=== PATIENT | female | born 1945 | race Caucasian/White ===

== ENCOUNTER 2020-08-20 12:06 | Outpatient (REF) | payer MEDICARE, SELFPAY ==
[2020-08-20 14:29] LABS: Anion Gap 14 (12-20); Blood Urea Nitrogen 15 mg/dL (9-16); Carbon Dioxide 26 mmol/L (22-29); Chloride 104 mmol/L (96-108); Estimated Glomerular Filt Rate 47; Glucose Fasting 121 mg/dL (60-99); Potassium 4.5 mmol/l (3.3-5.1); Sodium 139 mmol/L (135-145)
[2020-08-20 14:37] LABS: Estimated Average Glucose 157 mg/dL; Hemoglobin A1c % 7.1 %
== END 2020-08-20 12:07 | disposition home or self-care (01) ==
LOC: HO.10HDL 12:06
PROVIDERS: Visit Provider Family Medicine
DX: E11.9 Type 2 diabetes mellitus without complications (principal); I10 Essential (primary) hypertension
CPT/HCPCS: 80051; 82565; 82947; 83036; 84520

== ENCOUNTER 2020-09-07 15:48 | Outpatient (REF) | payer MEDICARE, SELFPAY ==
--- NOTE | 2020-09-07 15:53 | MM_ITS ---
EXAMINATION: MM SCREENING DIGITAL BREAST TOMOSYNTHESIS, BILATERAL CLINICAL INFORMATION: Screening. Asymptomatic. The lifetime risk of breast cancer based on the Tyrer-Cuzick Model is 3%. COMPARISON: Mammography: 03/14/2019, 02/28/2018 TECHNIQUE: Digital breast tomosynthesis is performed in both the craniocaudal and mediolateral oblique views along with computer-aided detection (CAD). Synthesized 2D images are generated from the tomosynthesis. Additional views are provided: Right CC x2, left CC, left MLO. FINDINGS: The breasts are almost entirely fatty (ACR BI-RADS breast composition Category a). There are no significant masses, abnormal calcifications, or other abnormalities. Background stromal densities are stable. The axilla are unremarkable. No significant changes. MM/MM tomosynthesis screening BI IMPRESSION: No mammographic evidence of malignancy. ASSESSMENT: BI-RADS 1: Negative RECOMMENDATION: Routine annual mammography screening. This patient's information was entered into a reminder system with a target due date for their next mammogram.
== END 2020-09-07 15:49 | disposition home or self-care (01) ==
LOC: HO.MAMMO 15:48
PROVIDERS: PCP Family Medicine; Visit Provider Family Medicine
DX: Z12.31 Encounter for screening mammogram for malignant neoplasm of breast (principal)
CPT/HCPCS: 77063; 77067

== ENCOUNTER → 2020-12-25 14:56 | Outpatient (REF) | payer MEDICARE, SELFPAY ==
--- NOTE | 2020-12-25 15:11 | ECG_ITS ---
Test Reason : IRREG HR Blood Pressure : / mmHG Vent. Rate : 087 BPM Atrial Rate : 087 BPM P-R Int : 160 ms QRS Dur : 118 ms QT Int : 392 ms P-R-T Axes : 067 -46 028 degrees QTc Int : 471 ms Sinus rhythm with occasional Premature atrial complexes Possible Left atrial enlargement Left anterior fascicular block Left ventricular hypertrophy with QRS widening Nonspecific ST abnormality Abnormal ECG When compared with ECG of 11-JUN-2017 20:44, Premature atrial complexes are now Present Referred By: Jacob Mendenhall Electronically Signed By:EBONI CHATMAN MD
== END ==
LOC: HO.CARD 14:56
PROVIDERS: PCP Family Medicine; Visit Provider Family Medicine
DX: I49.9 Cardiac arrhythmia, unspecified (principal); I49.3 Ventricular premature depolarization
CPT/HCPCS: 93005

== ENCOUNTER 2021-03-11 11:43 | Outpatient (REF) | payer MEDICARE, SELFPAY ==
[2021-03-11 13:46] LABS: Anion Gap 12 (12-20); Blood Urea Nitrogen 14 mg/dL (9-16); Carbon Dioxide 28 mmol/L (22-29); Chloride 104 mmol/L (96-108); Estimated Glomerular Filt Rate 50; Sodium 139 mmol/L (135-145)
== END 2021-03-11 11:44 | disposition home or self-care (01) ==
LOC: HO.10HDL 11:43
PROVIDERS: PCP Family Medicine; Visit Provider Family Medicine
DX: I10 Essential (primary) hypertension (principal)
CPT/HCPCS: 36415; 80051; 82565; 84520

== ENCOUNTER → 2021-04-28 13:09 | Outpatient (BNVA) | payer MEDICARE, SELFPAY | PROVIDERS: PCP Family Medicine; Visit Provider Internal Medicine | DX: E66.01 Morbid (severe) obesity due to excess calories (principal); J98.4 Other disorders of lung; R06.00 Dyspnea, unspecified; G47.33 Obstructive sleep apnea (adult) (pediatric); Z99.89 Dependence on other enabling machines and devices | CPT/HCPCS: 99202 ==

== ENCOUNTER 2021-05-18 13:57 | Outpatient (REF) | payer MEDICARE, SELFPAY ==
--- NOTE | 2021-05-18 15:12 | PFT_ITS ---
Forced vital capacity slightly decreased. FEV1, [id number], and MVV are normal. Post bronchodilator therapy, there is no significant change. Total lung capacity and residual volume are moderately decreased. Diffusion capacity normal. CONCLUSION: [id number] degree of restrictive pulmonary disorder. No obstructive airway disorder. MD LILIA Blanca/MODL / [id number]
== END 2021-05-18 13:58 | disposition home or self-care (01) ==
LOC: HO.RESP 13:57
PROVIDERS: PCP Family Medicine; Visit Provider Internal Medicine
DX: R06.00 Dyspnea, unspecified (principal); J98.4 Other disorders of lung; E66.01 Morbid (severe) obesity due to excess calories
CPT/HCPCS: 94060; 94727; 94729

== ENCOUNTER → 2021-06-10 14:03 | Outpatient (BNVA) | payer MEDICARE, SELFPAY | PROVIDERS: PCP Family Medicine; Visit Provider Internal Medicine | DX: G47.33 Obstructive sleep apnea (adult) (pediatric) (principal); J98.4 Other disorders of lung; R06.00 Dyspnea, unspecified; E66.01 Morbid (severe) obesity due to excess calories; Z99.89 Dependence on other enabling machines and devices | CPT/HCPCS: 99212 ==

== ENCOUNTER 2021-09-16 15:16 | Outpatient (REF) | payer MEDICARE, SELFPAY ==
--- NOTE | ~2021-09-16 | MM_ITS ---
EXAMINATION: MM SCREENING DIGITAL BREAST TOMOSYNTHESIS, BILATERAL CLINICAL INFORMATION: Screening. Asymptomatic. The lifetime risk of breast cancer based on the Tyrer-Cuzick Model is 3.7%. COMPARISON: Mammography: 09/07/2020 and studies dating back to 12/12/2013. TECHNIQUE: Digital breast tomosynthesis is performed in both the craniocaudal and mediolateral oblique views along with computer-aided detection (CAD). Synthesized 2D images are generated from the tomosynthesis. A right cleavage view was performed. FINDINGS: The breasts are almost entirely fatty (ACR BI-RADS breast composition category A). There is a stable parenchymal pattern of the left breast with no new abnormal dominant mass or suspicious grouping of microcalcifications. About the inferior inner aspect of the right breast, approximately 5 cm from the nipple, there is a grouping of calcifications which may be vascular. Recommend magnification views in craniocaudal and 90-degree mediolateral views. MM/MM tomosynthesis screening BI IMPRESSION: Right breast calcifications for further evaluation with magnification views. ASSESSMENT: BI-RADS 0: Incomplete - need additional imaging evaluation RECOMMENDATION: 1. Additional views of the right breast. 2. Targeted ultrasound if warranted after review of the additional views. 3. Radiology department staff will contact the patient for additional imaging. This patient's information was entered into a reminder system with a target due date for their next mammogram.
== END 2021-09-16 15:17 | disposition home or self-care (01) ==
LOC: HO.MAMMO 15:16
PROVIDERS: Visit Provider Family Medicine
DX: Z12.31 Encounter for screening mammogram for malignant neoplasm of breast (principal)
CPT/HCPCS: 77063; 77067

== ENCOUNTER 2021-09-21 11:39 | Outpatient (REF) | payer MEDICARE, SELFPAY ==
[2021-09-21 14:04] LABS: Estimated Average Glucose 143 mg/dL; Hemoglobin A1c % 6.6 %
[2021-09-21 14:17] LABS: Anion Gap 13 (12-20); Blood Urea Nitrogen 15 mg/dL (9-16); Carbon Dioxide 27 mmol/L (22-29); Chloride 104 mmol/L (96-108); Estimated Glomerular Filt Rate 50; Glucose Fasting 123 mg/dL (60-99); Potassium 4.7 mmol/L (3.3-5.1); Sodium 139 mmol/L (135-145)
== END 2021-09-21 11:40 | disposition home or self-care (01) ==
LOC: HO.10HDL 11:39
PROVIDERS: Internal Medicine; Visit Provider Family Medicine
DX: I10 Essential (primary) hypertension (principal); E11.9 Type 2 diabetes mellitus without complications
CPT/HCPCS: 36415; 80051; 82565; 82947; 83036; 84520

== ENCOUNTER 2021-10-07 13:49 | Outpatient (REF) | payer MEDICARE, SELFPAY ==
--- NOTE | ~2021-10-07 | MM_ITS ---
EXAMINATION: MM DIAGNOSTIC DIGITAL MAMMOGRAPHY, RIGHT CLINICAL INFORMATION: Recall from screening for increased calcifications anterior medial right breast, possibly vascular. TC score 4%. COMPARISON: Mammography: 09/16/2021, 09/07/2020, 03/14/2019, 02/28/2018 TECHNIQUE: Digital mammography is performed in the following views: Magnification CC x2, magnification ML, magnification LM x2. FINDINGS: The breasts are almost entirely fatty (ACR BI-RADS breast composition Category a). The calcifications anterior medial right breast are increased in number since 2018. On recent tomography, they appear to overlie vascular markings. Vascular etiology is also suggested on today's magnification LM #2 and magnification CC #2 views. Results are discussed with the patient at time of visit. MM/MM added views RT IMPRESSION: Increased calcifications anterior medial right breast likely vascular. ASSESSMENT: BI-RADS 3: Probably Benign RECOMMENDATION: Diagnostic right mammography in 6 months. This patient's information was entered into a reminder system with a target due date for their next mammogram.
== END 2021-10-07 13:50 | disposition home or self-care (01) ==
LOC: HO.MAMMO 13:49
PROVIDERS: Visit Provider Family Medicine
DX: R92.1 Mammographic calcification found on diagnostic imaging of breast (principal)
CPT/HCPCS: 77065

== ENCOUNTER → 2021-11-02 13:54 | Outpatient (REF) | payer MEDICARE, SELFPAY ==
--- NOTE | 2021-11-02 13:59 | CA_ITS ---
Transthoracic Echocardiogram Patient (Last, First, Middle): Stephanie Magaña, Gender: Female Date of : 1945 Age: 76 Procedure Date: 11/02/2021 Procedure Type: Transthoracic Echocardiogram Location: OP Height: 152.4 cm Weight: 117.94 kg BSA: 2.09 m2 Heart Rate: bpm BP: 103 / 82 mmHg Manager Winter: MARGO Referring MD: Jacob Mendenhall MD Symptoms: R01.1 MURMUR, J44.9 COPD Study Quality: Technically Difficult/contrast Conclusions: - 1. Technically very limited study despite use of definity contrast 2. LV systolic function is normal with LVEF of 65-70% with impaired relaxation filling pattern 3. Olps-zy-itktwqus aortic stenosis is noted Findings Procedure Information Contrast agent, definity, is being given per protocol without apparent complications. Left Ventricle The left ventricular systolic function is normal. The visually estimated ejection fraction is between 65-70%. Spectral Doppler is indicative of an impaired relaxation filling pattern. E/E prime ratio is between 8 and 15 consistent with indeterminate filling pressures. Right Ventricle The right ventricle was not well visualized. Atria The left atrium was not well visualized. Interatrial shunt cannot be excluded. The right atrium was not well visualized. Aortic Valve The aortic valve was not well visualized. There is mild to moderate aortic valve stenosis. The mean gradient is 18 mmHg. The aortic valve area is 1.71 cm2. There is mild aortic valve regurgitation. Mitral Valve The mitral valve was not well visualized. Pulmonic Valve The pulmonic valve was not well visualized. Tricuspid Valve The tricuspid valve was not well visualized. Tricuspid regurgitation envelope is inadequate for calculation of right ventricular systolic pressure. Great Vessels The aorta was not well visualized. The pulmonary artery was not well visualized. Venous The inferior vena cava was not well visualized. Pericardium/Pleural The pericardium was not well visualized. Prior Study Comparison no previous study in the last 5 years for comparison Measurements 2D Linear Measurements Ao Root: 3.30 2.1-3.5 cm LVOT Diam: 2.00 3.0+(-)1.3 cm 2D Systolic Function EF 4C: 73.30 >55% EF 2C: 64.60 >55% EF BiP: 68.20 >55% Mitral Valve MV Pk E: 0.91 MV PK A: 1.24 MV Decel Time: 232.00 E/A: 0.70 E'Lateral: 5.98 E'Medial: 6.64 E/E' Med: 13.80 E/E' Lat: 15.30 PHT: 68.00 MVA PHT: 3.24 Decel [place]: 3.93 Aortic Valve AoV Pk Jorge: 2.93 AoV Mn Jorge: 1.98 AoV VTI: 0.59 AoV Pk Grad: 34.00 Aov Mn Grad: 18.00 DARRELL Cont.VTI: 1.71 LVOT LVOT Pk Jorge: 1.53 LVOT Mn Jorge: 1.18 LVOT VTI: 0.32 LVOT Pk Grad: 9.00 LVOT Mn Grad: 6.00 LVOT Diam: 2.00 LVOT Area: 3.14 Diastolic Function MV Pk E: 0.91 MV Pk A: 1.24 E/A: 0.70 E'Medial: 6.64 E/E' Med: 13.80 E' Laterial: 5.98 E/E' Lat: 15.30 Right Ventricle TAPSE (mm): 26.40 TVS' Jorge: 9.90 Tricuspid Valve TR Pk Jorge: 2.10 TR Pk Grad: 18.00 Great Vessels Aorta Ao Root-2D: 3.30 2.0-3.7 cm Ao Asc: 3.10 2.1-3.4 cm Updated in Other Vendor System with Status of Final Sourav Nguyen MD electronically signed on 11/03/2021 7:11:14 PM with status of Final
== END ==
LOC: HO.CARD 13:54
PROVIDERS: Visit Provider Family Medicine
DX: R01.1 Cardiac murmur, unspecified (principal)
CPT/HCPCS: 93306; Q9957

== ENCOUNTER 2022-02-21 12:11 | Outpatient (REF) | payer MEDICARE, SELFPAY ==
[2022-02-21 13:50] LABS: Glucose Fasting 134 mg/dL (60-99)
[2022-02-21 13:54] LABS: Estimated Average Glucose 146 mg/dL; Hemoglobin A1c % 6.7 %
[2022-02-21 13:55] LABS: Creatinine Urine 69.85 mg/dL; Microalbumin Urine < 5.0 mg/L
== END 2022-02-21 12:12 | disposition home or self-care (01) ==
LOC: HO.10HDL 12:11
PROVIDERS: Visit Provider Family Medicine
DX: E11.9 Type 2 diabetes mellitus without complications (principal)
CPT/HCPCS: 36415; 82043; 82947; 83036

== ENCOUNTER 2022-04-08 14:46 | Outpatient (REF) | payer MEDICARE, SELFPAY ==
--- NOTE | ~2022-04-08 | MM_ITS ---
EXAMINATION: MM DIAGNOSTIC DIGITAL BREAST TOMOSYNTHESIS, RIGHT CLINICAL INFORMATION: Short interval six-month follow-up probable benign possibly vascular calcifications anterior lower inner right breast. The lifetime risk of breast cancer based on the Tyrer-Cuzick Model is 3%. COMPARISON: Mammography: 10/07/2021, 09/16/2021 (BI-RADS 0), 09/07/2020, 03/14/2019 TECHNIQUE: Digital breast tomosynthesis is performed in both the craniocaudal and mediolateral oblique views along with computer-aided detection (CAD). Synthesized 2D images are generated from the tomosynthesis. Additional magnification CC and magnification lateral views are obtained. FINDINGS: The breasts are almost entirely fatty (ACR BI-RADS breast composition Category a). Background stromal markings are stable. There is no interval mass or architectural abnormality. The calcifications for follow-up anterior inferior medial breast appear to overlie vascular marking on tomography. The magnification views show no increasing calcifications. They will be reassessed again at time of annual bilateral mammography, due in 6 months. Results are provided to the patient at time of visit by the technologist. MM/MM tomosynthesis diagnostic RT IMPRESSION: Calcifications are stable, possibly vascular on tomography. ASSESSMENT: BI-RADS 3: Probably Benign RECOMMENDATION: Diagnostic mammography at time of annual bilateral exam, due in 6 months. This patient's information was entered into a reminder system with a target due date for their next mammogram.
== END 2022-04-08 14:47 | disposition home or self-care (01) ==
LOC: HO.MAMMO 14:46
PROVIDERS: PCP Family Medicine; Visit Provider Family Medicine
DX: R92.1 Mammographic calcification found on diagnostic imaging of breast (principal)
CPT/HCPCS: 77061; 77065

== ENCOUNTER 2022-04-18 12:10 | Outpatient (REF) | payer MEDICARE, SELFPAY ==
[2022-04-18 14:08] LABS: Anion Gap 14 (12-20); Blood Urea Nitrogen 14 mg/dL (9-16); Carbon Dioxide 26 mmol/L (22-29); Chloride 105 mmol/L (96-108); Estimated Glomerular Filt Rate 47; Sodium 140 mmol/L (135-145)
== END 2022-04-18 12:11 | disposition home or self-care (01) ==
LOC: HO.10HDL 12:10
PROVIDERS: Visit Provider Family Medicine
DX: I10 Essential (primary) hypertension (principal)
CPT/HCPCS: 36415; 80051; 82565; 84520

== ENCOUNTER 2022-07-20 11:17 | Outpatient (REF) | payer MEDICARE, SELFPAY ==
[2022-07-20 13:51] LABS: MANUAL DIFF FLAG NO
[2022-07-20 14:22] LABS: Basophils Absolute Auto 0.1 X10*3/uL (0.0-0.2); Eosinophils Absolute Auto 0.3 X10*3/uL (0.0-0.4); Eosinophils Percent Auto 3.7 % (0-4); Hematocrit 47.9 % (37.0-47.0); Hemoglobin 15.6 g/dl (12.0-16.0); Imm Gran Abs Auto 0.01 X10*3/uL (0.00-0.03); Imm Gran Pct Auto 0.1 % (0.0-0.4); Lymphocytes Absolute Auto 2.7 X10*3/uL (1.2-4.9); Lymphocytes Percent Auto 38.2 % (20-40); Mean Corpuscular HGB Conc 32.6 g/dl (31.0-35.0); Mean Corpuscular Hemoglobin 29.1 pg (27.0-33.0); Mean Corpuscular Volume 89.4 fL (80.0-98.0); Monocytes Absolute Auto 0.6 X10*3/uL (0.1-1.2); Monocytes Percent Auto 8.5 % (2-11); Neutrophils Absolute Auto 3.5 x10*3/uL (2.0-8.3); Neutrophils Percent Auto 48.5 % (45-73); Platelet Count 242 X10*3/uL (160-400); Red Blood Count 5.36 X10*6/uL (4.20-5.50); Red Cell Distribution Width 14.2 % (11.0-16.0); White Blood Count 7.1 X10*3/uL (4.8-10.8)
[2022-07-20 14:44] LABS: Glucose Fasting 120 mg/dL (60-99)
[2022-07-20 14:45] LABS: Estimated Average Glucose 140 mg/dL; Hemoglobin A1c % 6.5 %
== END 2022-07-20 11:18 | disposition home or self-care (01) ==
LOC: HO.10HDL 11:17
PROVIDERS: Visit Provider Family Medicine
DX: E11.9 Type 2 diabetes mellitus without complications (principal); D45 Polycythemia vera
CPT/HCPCS: 36415; 82947; 83036; 85025

== ENCOUNTER 2022-10-07 13:13 | Outpatient (REF) | payer MEDICARE, SELFPAY ==
--- NOTE | ~2022-10-07 | MM_ITS ---
EXAMINATION: MM DIAGNOSTIC DIGITAL BREAST TOMOSYNTHESIS, BILATERAL CLINICAL INFORMATION: Yearly screening as well as diagnostic right breast study for microcalcifications. The lifetime risk of breast cancer based on the Tyrer-Cuzick Model is 2.5%. COMPARISON: Mammography: 04/08/2022 and studies dating back to 02/02/2016. TECHNIQUE: Digital breast tomosynthesis was performed in both the craniocaudal and mediolateral oblique views along with computer-aided detection (CAD). Synthesized 2D images were generated from the tomosynthesis. Additional right breast magnification views in craniocaudal and 90 degree mediolateral views were performed. FINDINGS: The breasts are almost entirely fatty (ACR BI-RADS breast composition Category a). No new abnormal dominant mass is appreciated. There is stability of calcifications about the superior medial aspect of the right breast. Recommend right breast magnification views in 1 year with bilateral mammography. Results are provided to the patient at time of visit by the technologist. MM/MM tomosynthesis diagnostic BI IMPRESSION: There are no significant changes from prior study. ASSESSMENT: BI-RADS 3: Probably Benign RECOMMENDATION: Diagnostic mammography at time of next annual exam, due in 12 months. This patient's information was entered into a reminder system with a target due date for their next mammogram.
== END 2022-10-07 13:14 | disposition home or self-care (01) ==
LOC: HO.MAMMO 13:13
PROVIDERS: PCP Family Medicine; Visit Provider Family Medicine
DX: R92.1 Mammographic calcification found on diagnostic imaging of breast (principal)
CPT/HCPCS: 77062; 77066

== ENCOUNTER 2022-11-04 11:28 | Outpatient (REF) | payer MEDICARE, SELFPAY ==
[2022-11-04 14:27] LABS: Anion Gap 14 (12-20); Blood Urea Nitrogen 15 mg/dL (9-16); Carbon Dioxide 27 mmol/L (22-29); Chloride 105 mmol/L (96-108); Estimated Glomerular Filt Rate 49; Potassium 4.6 mmol/L (3.3-5.1); Sodium 141 mmol/L (135-145)
== END 2022-11-04 11:29 | disposition home or self-care (01) ==
LOC: HO.10HDL 11:28
PROVIDERS: Visit Provider Family Medicine
DX: I10 Essential (primary) hypertension (principal)
CPT/HCPCS: 36415; 80051; 82565; 84520

== ENCOUNTER 2023-01-25 11:44 | Outpatient (REF) | payer MEDICARE, SELFPAY ==
[2023-01-25 14:18] LABS: Estimated Average Glucose 140 mg/dL; Hemoglobin A1c % 6.5 %
[2023-01-25 14:56] LABS: Glucose Fasting 126 mg/dL (60-99)
[2023-01-25 15:03] LABS: Creatinine Urine 192.71 mg/dL; Microalbum/Creatinine Ratio Ur 4.1 ug/mg cr
== END 2023-01-25 11:45 | disposition home or self-care (01) ==
LOC: HO.10HDL 11:44
PROVIDERS: Visit Provider Family Medicine
DX: E11.9 Type 2 diabetes mellitus without complications (principal)
CPT/HCPCS: 36415; 82043; 82947; 83036

== ENCOUNTER 2023-05-08 11:29 | Outpatient (REF) | payer MEDICARE, SELFPAY ==
[2023-05-08 14:27] LABS: Anion Gap 15 (12-20); Blood Urea Nitrogen 15 mg/dL (9-16); Carbon Dioxide 23 mmol/L (22-29); Chloride 109 mmol/L (96-108); Estimated Glomerular Filt Rate 55; Potassium 4.6 mmol/L (3.3-5.1); Sodium 142 mmol/L (135-145)
== END 2023-05-08 11:30 | disposition home or self-care (01) ==
LOC: HO.10HDL 11:29
PROVIDERS: Visit Provider Family Medicine
DX: I10 Essential (primary) hypertension (principal)
CPT/HCPCS: 36415; 80051; 82565; 84520

== ENCOUNTER 2023-10-12 13:07 | Outpatient (REF) | payer MEDICARE, SELFPAY | END 2023-10-12 13:08 | disposition home or self-care (01) | LOC: HO.MAMMO 13:07 | PROVIDERS: PCP Family Medicine; Visit Provider Family Medicine | DX: R92.1 Mammographic calcification found on diagnostic imaging of breast (principal) | CPT/HCPCS: 77062; 77066 ==

== ENCOUNTER → 2023-10-12 13:30 | Outpatient (BNV) | payer MEDICARE, SELFPAY | PROVIDERS: PCP Family Medicine; Visit Provider Radiology Diagnostic Radiology | DX: R92.1 Mammographic calcification found on diagnostic imaging of breast (principal) | CPT/HCPCS: 77066; G0279 ==

== ENCOUNTER 2023-12-13 11:03 | Outpatient (REF) | payer MEDICARE, SELFPAY ==
[2023-12-13 13:16] LABS: MANUAL DIFF FLAG NO
[2023-12-13 13:30] LABS: Basophils Absolute Auto 0.1 X10*3/uL (0.0-0.2); Eosinophils Absolute Auto 0.3 X10*3/uL (0.0-0.4); Eosinophils Percent Auto 3.7 % (0-4); Hematocrit 46.3 % (37.0-47.0); Hemoglobin 14.7 g/dl (12.0-16.0); Imm Gran Abs Auto 0.02 X10*3/uL (0.00-0.03); Imm Gran Pct Auto 0.3 % (0.0-0.4); Lymphocytes Absolute Auto 2.8 X10*3/uL (1.2-4.9); Lymphocytes Percent Auto 37.9 % (20-40); Mean Corpuscular HGB Conc 31.7 g/dl (31.0-35.0); Mean Corpuscular Hemoglobin 27.9 pg (27.0-33.0); Mean Corpuscular Volume 87.9 fL (80.0-98.0); Mean Platelet Volume 11.9 fL (9.4-12.3); Monocytes Absolute Auto 0.6 X10*3/uL (0.1-1.2); Monocytes Percent Auto 8.2 % (2-11); Neutrophils Absolute Auto 3.6 x10*3/uL (2.0-8.3); Neutrophils Percent Auto 48.9 % (45-73); Platelet Count 245 X10*3/uL (160-400); Red Blood Count 5.27 X10*6/uL (4.20-5.50); Red Cell Distribution Width 14.6 % (11.0-16.0); White Blood Count 7.3 X10*3/uL (4.8-10.8)
[2023-12-13 14:11] LABS: Anion Gap 9 (12-20); Blood Urea Nitrogen 10 mg/dL (9-16); Carbon Dioxide 30 mmol/L (22-29); Chloride 105 mmol/L (96-108); Estimated Glomerular Filt Rate 56; Glucose Fasting 128 mg/dL (60-99); Potassium 4.2 mmol/L (3.3-5.1); Sodium 140 mmol/L (135-145)
[2023-12-13 14:24] LABS: Estimated Average Glucose 137 mg/dL; Hemoglobin A1c % 6.4 % (<6.0)
[2023-12-13 14:53] LABS: Creatinine Urine 129.17 mg/dL; Microalbum/Creatinine Ratio Ur 5.4 ug/mg cr (<30)
== END 2023-12-13 11:04 | disposition home or self-care (01) ==
LOC: HO.10HDL 11:03
PROVIDERS: Visit Provider Family Medicine
DX: I10 Essential (primary) hypertension (principal); E11.9 Type 2 diabetes mellitus without complications; R06.02 Shortness of breath
CPT/HCPCS: 36415; 80051; 82043; 82565; 82570; 82947; 83036; 84520; 85025

== ENCOUNTER 2024-07-16 10:17 | Outpatient (REF) | payer MEDICARE, SELFPAY ==
[2024-07-16 10:50] LABS: MANUAL DIFF FLAG NO
[2024-07-16 11:08] LABS: Basophils Absolute Auto 0.1 X10*3/uL (0.0-0.2); Basophils Percent Auto 0.9 % (0-2); Eosinophils Absolute Auto 0.3 X10*3/uL (0.0-0.4); Eosinophils Percent Auto 3.7 % (0-4); Hematocrit 47.6 % (37.0-47.0); Hemoglobin 15.5 g/dl (12.0-16.0); Imm Gran Abs Auto 0.02 X10*3/uL (0.00-0.03); Imm Gran Pct Auto 0.3 % (0.0-0.4); Lymphocytes Percent Auto 39.1 % (20-40); Mean Corpuscular HGB Conc 32.6 g/dl (31.0-35.0); Mean Corpuscular Hemoglobin 28.8 pg (27.0-33.0); Mean Corpuscular Volume 88.5 fL (80.0-98.0); Mean Platelet Volume 11.7 fL (9.4-12.3); Monocytes Absolute Auto 0.6 X10*3/uL (0.1-1.2); Monocytes Percent Auto 7.9 % (2-11); Neutrophils Absolute Auto 3.7 x10*3/uL (2.0-8.3); Neutrophils Percent Auto 48.1 % (45-73); Platelet Count 228 X10*3/uL (160-400); Red Blood Count 5.38 X10*6/uL (4.20-5.50); Red Cell Distribution Width 14.7 % (11.0-16.0); White Blood Count 7.8 X10*3/uL (4.8-10.8)
[2024-07-16 11:23] LABS: Anion Gap 12 (12-20); Blood Urea Nitrogen 11 mg/dL (9-16); Carbon Dioxide 29 mmol/L (22-29); Chloride 105 mmol/L (96-108); Estimated Glomerular Filt Rate 59; Potassium 3.9 mmol/L (3.3-5.1); Sodium 142 mmol/L (135-145)
== END 2024-07-16 10:18 | disposition home or self-care (01) ==
LOC: HO.10HDL 10:17
PROVIDERS: Visit Provider Family Medicine
DX: I10 Essential (primary) hypertension (principal); D45 Polycythemia vera
CPT/HCPCS: 36415; 80051; 82565; 84520; 85025

== ENCOUNTER 2024-10-17 14:26 | Outpatient (REF) | payer MEDICARE, SELFPAY | END 2024-10-17 14:27 | disposition home or self-care (01) | LOC: HO.MAMMO 14:26 | PROVIDERS: PCP Family Medicine; Visit Provider Family Medicine | DX: Z12.31 Encounter for screening mammogram for malignant neoplasm of breast (principal) | CPT/HCPCS: 77063; 77067 ==

== ENCOUNTER → 2024-10-17 14:30 | Outpatient (BNV) | payer MEDICARE, SELFPAY | PROVIDERS: PCP Family Medicine; Visit Provider Internal Medicine | DX: Z12.31 Encounter for screening mammogram for malignant neoplasm of breast (principal) | CPT/HCPCS: 77063; 77067 ==

== ENCOUNTER 2024-11-19 12:48 | Outpatient (REF) | payer MEDICARE, SELFPAY | END 2024-11-19 12:49 | disposition home or self-care (01) | LOC: HO.XRAY 12:48 | PROVIDERS: PCP Family Medicine; Visit Provider Family Medicine | DX: M54.50 Low back pain, unspecified (principal) | CPT/HCPCS: 72100 ==

== ENCOUNTER → 2024-11-19 12:57 | Outpatient (BNV) | payer MEDICARE, SELFPAY | PROVIDERS: PCP Family Medicine; Visit Provider Radiology Diagnostic Radiology | DX: M54.50 Low back pain, unspecified (principal) | CPT/HCPCS: 72100 ==

== ENCOUNTER 2025-01-28 11:18 | Outpatient (REF) | payer MEDICARE, SELFPAY ==
[2025-01-28 13:21] LABS: MANUAL DIFF FLAG NO
[2025-01-28 13:47] LABS: Basophils Absolute Auto 0.1 X10*3/uL (0.0-0.2); Basophils Percent Auto 0.9 % (0-2); Eosinophils Absolute Auto 0.2 X10*3/uL (0.0-0.4); Eosinophils Percent Auto 3.1 % (0-4); Hematocrit 47.2 % (37.0-47.0); Hemoglobin 15.5 g/dl (12.0-16.0); Imm Gran Abs Auto 0.01 X10*3/uL (0.00-0.03); Imm Gran Pct Auto 0.1 % (0.0-0.4); Lymphocytes Percent Auto 39.3 % (20-40); Mean Corpuscular HGB Conc 32.8 g/dl (31.0-35.0); Mean Corpuscular Hemoglobin 29.3 pg (27.0-33.0); Mean Corpuscular Volume 89.2 fL (80.0-98.0); Mean Platelet Volume 11.4 fL (9.4-12.3); Monocytes Absolute Auto 0.5 X10*3/uL (0.1-1.2); Monocytes Percent Auto 6.2 % (2-11); Neutrophils Absolute Auto 3.9 x10*3/uL (2.0-8.3); Neutrophils Percent Auto 50.4 % (45-73); Platelet Count 213 X10*3/uL (160-400); Red Blood Count 5.29 X10*6/uL (4.20-5.50); Red Cell Distribution Width 14.3 % (11.0-16.0); White Blood Count 7.7 X10*3/uL (4.8-10.8)
[2025-01-28 14:23] LABS: Estimated Average Glucose 137 mg/dL; Hemoglobin A1C 190.8821 umol/L; Hemoglobin A1c % 6.4 % (<6.0); Total Hemoglobin (HGBA1C) 4126.9585 umol/L
[2025-01-28 14:48] LABS: Anion Gap 12 (12-20); Blood Urea Nitrogen 14 mg/dL (9-16); Carbon Dioxide 29 mmol/L (22-29); Chloride 108 mmol/L (96-108); Estimated Glomerular Filt Rate 53; Glucose Fasting 121 mg/dL (60-99); Potassium 4.6 mmol/L (3.3-5.1); Sodium 144 mmol/L (135-145)
== END 2025-01-28 11:19 | disposition home or self-care (01) ==
LOC: HO.10HDL 11:18
PROVIDERS: Visit Provider Family Medicine
DX: M54.50 Low back pain, unspecified (principal); R06.02 Shortness of breath; E11.9 Type 2 diabetes mellitus without complications; E78.00 Pure hypercholesterolemia, unspecified; I10 Essential (primary) hypertension
CPT/HCPCS: 36415; 80051; 82565; 82947; 83036; 84520; 85025

== ENCOUNTER 2025-04-24 11:59 | Emergency (ER) | payer MEDICARE, SELFPAY ==
--- NOTE | ~2025-04-24 | XR_ITS ---
EXAMINATION: XR LUMBOSACRAL SPINE CLINICAL INFORMATION: pain COMPARISON: None available. TECHNIQUE: Three views of the lumbosacral spine. FINDINGS: Right upper quadrant clip is likely from cholecystectomy. There are 5 nonrib-bearing lumbar segments. There are moderate to severe degenerative changes with disc space narrowing, endplate sclerosis and osteophytes, and also facet arthropathy with sclerosis and osteophytes. XR/XR lumbar spine 2-3V IMPRESSION: Exam quality is low due to positioning and body habitus. L5 vertebral body is not well-demonstrated. Otherwise, no evidence of fracture. Multilevel degenerative disc disease and facet arthropathy. Electronically signed by: Domingo Shipley MD 04/24/2025 01:33 PM EDT
[2025-04-24 12:01] VITALS: BP 152/76; PULSE 84; O2SAT 99
[2025-04-24 12:05] VITALS: BMI 53.9
--- NOTE | 2025-04-24 12:16 | ED.GENADULT ---
HPI - General Adult General Chief complaint: Back Pain/Injury Stated complaint: BACK PAIN Time Seen by Provider: 04/24/25 12:16 Source: patient and EMS Mode of arrival: EMS Limitations: no limitations History of Present Illness ED Provider: Rosalinda Mcdonald PA-C HPI narrative: Patient is an 80 year old female with past medical history of KI, DM2, restrictive lung disease, sciatica, and osteoarthritis with bilateral knee replacements presents to the ER on 04/24 with chief complaint of right sided lower back pain that shoots down her leg posteriorly. The onset of this back pain was 2 days ago, and she states she has gotten similar episodes of back pain in the past, but not this severe. She denies inciting injury, trauma, or change in activity. She takes aspirin for her pain and finds it mildly helpful. She also sees a chiropractor regularly and finds it helpful, last appointment was 8 days ago. Changing from one position to another exacerbates the pain. Normally these episodes go away on their own after 1-2 days. She states a previous X-Ray of her lumbar spine showed an osteophyte which may be the cause of her pain. She denies new numbness or tingling in her extremities, saddle anesthesia, new incontinence, fevers, chills, or any other symptoms. Onset (ago): day(s) (2) Related Data Home Medications ?Medication ?Instructions ?Recorded ?Confirmed albuterol sulfate 90 mcg/actuation 2 puff inhalation Q6H PRN sob 04/28/21 04/24/25 aerosol inhaler aspirin 81 mg tablet,delayed 81 mg PO BEDTIME 04/28/21 04/24/25 release dorzolamide 2 % eye drops 1 drp ophthalmic (eye) TID 04/28/21 04/24/25 latanoprost 0.005 % eye drops 1 drp ophthalmic (eye) BEDTIME 04/28/21 04/24/25 glacoma magnesium 250 mg tablet 500 mg PO DAILY 04/28/21 04/24/25 omega 1-doj-izf-fish oil 100 1,000 cap PO DAILY 04/28/21 04/24/25 mg-160 mg-1,000 mg capsule (Fish Oil) blood sugar diagnostic (FreeStyle #10 ea 06/10/21 Lite Strips) lancets 28 gauge (FreeStyle #100 ea 06/10/21 Lancets) ascorbic acid (vitamin C) 1,000 mg 1,000 mg PO DAILY 04/24/25 04/24/25 tablet (Vitamin C) metoprolol succinate 25 mg 25 mg PO BEDTIME 04/24/25 04/24/25 tablet,extended release 24 hr nifedipine 30 mg tablet,extended 30 mg PO DAILY 04/24/25 04/24/25 release Allergies Allergy/AdvReac Type Severity Reaction Status Date / Time [id number] Reductase Allergy Unknown LEG+MUSCLE Verified 04/24/25 12:08 Inhibitor ([id number] CRAMPS REDUCTASE INHIBITOR) ENVIROMENTAL Allergy Intermediate SNEEZING, Uncoded 04/24/25 12:08 WATERY EYES Review of Systems Constitutional: Constitutional: Reports no additional constitutional complaints, Denies chills, Denies fever(s) and Denies night sweats Eyes: Eyes: Reports no additional eye complaints, Denies blurry vision, Denies change in vision, Denies diplopia, Denies eye discharge, Denies loss of vision and Denies eye pain ENT: Denies dizziness Cardiovascular: Cardiovascular: Reports no additional cardiovascular complaints, Denies chest pain, Denies lightheadedness, Denies Loss of Consciousness and Denies dyspnea Respiratory: Respiratory: Reports no additional respiratory complaints and Denies dyspnea Gastrointestinal: Gastrointestinal: Reports no additional gastrointestinal complaints, Denies abdominal pain, Denies melena, Denies hematochezia, Denies change in bowel habits and Denies change in stool character Genitourinary: Genitourinary: Denies hematuria, Denies urinary frequency, Denies dysuria, Denies urinary incontinence, Denies urinary hesitancy and Denies urinary urgency Musculoskeletal: Musculoskeletal: Reports no additional musculoskeletal complaints, Reports as per HPI, Reports back pain, Denies numbness and Denies tingling Neurologic: Denies dizziness, Denies loss of vision, Denies numbness and Denies tingling Psychiatric: Psychiatric: Reports no additional psychiatric complaints Endocrine: Endocrine: Reports no additional endocrine complaints Hematologic/Lymphatic: Hematologic/Lymphatic: Reports no additional hematologic/lymphatic complaints Allergic/Immunologic: Allergic/Immunologic: Reports no additional allergic/immunologic complaints PMFSH Past Medical History Attestation statement: The following information was validated with the patient. Source: old records reviewed and nursing notes reviewed Medical History KI on CPAP Dyspnea on exertion Restrictive lung disease Morbid obesity Social History Social History Alcohol intake: former Smoked in Last 30 Days: No Use of substances other than those prescribed or required for medical reasons: No Advance Directives: No Advance Directives Information Provided: Yes Physical Exam ED Vital Signs: Vital Signs - 24 hr 04/24/25 21:17 04/24/25 21:35 04/25/25 05:59 Temperature 98.7 F 97.0 F Pulse Rate 67 67 67 Respiratory Rate 18 16 Blood Pressure 143/57 H 143/57 H 142/58 H Pulse Oximetry 94 94 Oxygen Delivery Method Nasal Cannula Nasal Cannula Oxygen Flow Rate 2 1 04/25/25 08:54 04/25/25 15:11 Temperature 98.3 F Pulse Rate 67 63 Respiratory Rate 16 Blood Pressure 142/58 H 103/50 L Pulse Oximetry 94 93 Oxygen Delivery Method Room Air Oxygen Flow Rate BMI result Body Mass Index 53.9 Const General: cooperative, no acute distress, alert and awake Nutritional Appearance: well nourished and obese Orientation/consciousness: patient oriented x3 HENMT Head: Yes normal to inspection and Yes atraumatic Ears: hearing grossly normal bilaterally and external ears normal General nose exam: Normal external nose present, no nasal discharge noted and no epistaxis Face and sinus: Yes normal facial exam, No abrasion and No laceration Mouth: Normal oral and palatal mucosa present, no drooling and no muffled voice Eyes General: appearance normal, both eyes and all related structures Periorbital: periorbital findings normal Eyelids: Yes eyelids normal Conjunctivae: conjunctivae normal Pupils: Equal, round and reactive pupils present EOM: EOMs intact bilaterally Neck Neck: Yes normal visual inspection, Yes full ROM and Yes no lymphadenopathy Resp Effort & Inspection: normal respiratory effort and able to speak in complete sentences Back/Spine/Pelvis Thoracic/Lumbar Spine: straight leg raise positive (on right side) Neuro General: patient oriented x3, moves all extremities and CN's II-XI intact bilaterally Cranial nerves: Yes Equal, round and reactive pupils present Cognition (Neuro): normal cognition Extrem General: Yes normal to inspection and Yes capillary refill normal Psych Appearance: grossly normal Mental Status: mental status grossly normal Affect: normal affect Attitude: cooperative Thought process: Normal thought process present Thought content: Normal thought content present Insight: Good insight present (Psych) Course Reevaluation(s) Reevaluation #1: Time: 08:22 Date: 04/25/25 Provider: Joslyn Sandy CNP Patient in physician observation for case management needs pending physical therapy and case management evaluation. No acute events reported overnight.? No current issues or complaints. VS stable. Will continue to monitor. 04/25/2025 19:00 physician observation end time, discharged to [facility] Medications Administered Generic Name Dose Route Start Last Admin Trade Name Freq PRN Reason Stop Dose Admin Ascorbic Acid 1,000 mg 04/25/25 09:00 04/25/25 09:18 Ascorbic Acid 500 Mg Tablet PO 1,000 mg DAILY VEENA Administration Aspirin 81 mg 04/24/25 21:00 04/24/25 21:18 Aspirin Enteric Coated 81 Mg Tablet.Dr PO 81 mg BEDTIME VEENA Administration Dorzolamide HCl 1 drop 04/24/25 21:00 04/25/25 15:00 Dorzolamide Hcl 2 % Ophth Kathy 10 Ml Drpbtl EYE-BOTH 1 drop TID VEENA Administration Latanoprost 1 drop 04/24/25 21:00 04/24/25 21:18 Latanoprost 0.005 % Ophth Kathy 2.5 Ml Drops EYE-BOTH 1 drop BEDTIME VEENA Administration Magnesium Oxide 400 mg 04/25/25 09:00 04/25/25 09:19 Magnesium Oxide 400 Mg Tablet PO 400 mg DAILY VEENA Administration Metoprolol Succinate 25 mg 04/24/25 21:00 04/24/25 21:17 Metoprolol Succinate Er 25 Mg Tab.Er.24h PO 25 mg BEDTIME VEENA Administration Protocol Nifedipine 30 mg 04/25/25 09:00 04/25/25 09:19 Nifedipine Er 30 Mg Tab.Er.24 PO 30 mg DAILY VEENA Administration Discontinued Medications Generic Name Dose Route Start Last Admin Trade Name Freq PRN Reason Stop Dose Admin Diazepam 2 mg 04/24/25 12:43 04/24/25 13:01 Diazepam 2 Mg Tablet PO 04/24/25 12:44 2 mg ONCE ONE Administration Gabapentin 300 mg 04/24/25 13:50 04/24/25 14:00 Gabapentin 300 Mg Capsule PO 04/24/25 13:51 300 mg ONCE ONE Administration Hydromorphone HCl 0.5 mg 04/24/25 13:50 04/24/25 14:12 Hydromorphone Hcl 0.5 Mg/0.5 Ml Syringe IVPUSH 04/24/25 13:51 0.5 mg ONCE ONE Administration Protocol Ketorolac Tromethamine 15 mg 04/24/25 12:43 04/24/25 13:01 Ketorolac Tromethamine 15 Mg/Ml Vial IM 04/24/25 12:44 15 mg ONCE ONE Administration Methylprednisolone Sodium Succinate 60 mg 04/24/25 13:50 04/24/25 14:01 Methylprednisolone Sod Succ 125 Mg/2 Ml Vial IVPUSH 04/24/25 13:51 60 mg ONCE ONE Administration Medical Decision Making Medical Decision Making [facility] Narrative: Patient is an 80 year old assigned female at with a history of KI, DM2, restrictive lung disease on oxygen via nasal cannula at baseline, sciatica, and osteoarthritis with bilateral knee replacements presenting to the emergency department today with right sided low back pain. Patient's physical exam was as noted in the physical exam portion of this note. Patient's clinical presentation is most consistent with a herniated disc and associated sciatica. Patient's blood work was unremarkable. Patient's lumbar x-ray showed no acute process. Patient has no evidence or signs of cauda equina. I explained my physical exam findings as well as all test results to the patient. I answered all questions asked by the patient. Patient received valium, dilaudid, toradol, solu-medrol, and gabapentin which, upon re-evaluation, she stated it helped her symptoms some but not enough for her to tolerate walking. Patient states that when she had her knees replaced she was on oxycodone and dilaudid and continued having pain. Patient states that she would like to be stayed to be evaluated by physical therapy and case management because she is unable to walk at home. Patient verbalized agreement and understanding with this treatment plan and being in observation pending PT and CM evaluations. Observation began at 1537 on 04/24/2025. Differential Diagnosis Differential Diagnoses: The differential diagnosis associated with the presentation includes Herniated disc Low back pain Sciatica Admission/Observation Consideration of admission/observation: Escalation of care including admission/observation considered Patient would have been admitted to the hospital had her work up had any findings where hospital admission was appropriate and her clinical presentation warranted hospital admission. Lab Data [facility] Lab Attestation statement: I reviewed the patient's lab results. My interpretation of these results are in the [facility] Rationale portion of this note. 04/24/25 16:06 04/24/25 16:06 Labs: Lab Results 04/24/25 04/24/25 Range/Units 16:06 17:21 WBC 7.9 (4.8-10.8) X10*3/uL RBC 5.39 (4.20-5.50) X10*6/uL Hgb 15.3 (12.0-16.0) g/dl Hct 46.9 (37.0-47.0) % MCV 87.0 (80.0-98.0) fL MCH 28.4 (27.0-33.0) pg MCHC 32.6 (31.0-35.0) g/dl RDW 14.7 (11.0-16.0) % Plt Count 219 (160-400) X10*3/uL MPV 10.7 (9.4-12.3) fL Immature Gran % (Auto) 0.8 H (0.0-0.4) % Neut % (Auto) 81.9 H (45-73) % Lymph % (Auto) 14.4 L (20-40) % Newberry % (Auto) 2.3 (2-11) % Eos % (Auto) 0.1 (0-4) % Baso % (Auto) 0.5 (0-2) % Lymph # (Auto) 1.1 L (1.2-4.9) X10*3/uL Newberry # (Auto) 0.2 (0.1-1.2) X10*3/uL Eos # (Auto) 0.0 (0.0-0.4) X10*3/uL Baso # (Auto) 0.0 (0.0-0.2) X10*3/uL Abs Immat Gran (auto) 0.06 H (0.00-0.03) X10*3/uL Absolute Neuts (auto) 6.5 (2.0-8.3) x10*3/uL Absolute Nucleated RBC 0.000 (0.0-0.012) X10*3/uL Nucleated RBC % (auto) 0.0 (0.0-0.2) /100WBC Sodium 142 (135-145) mmol/L Potassium 4.7 (3.3-5.1) mmol/L Chloride 108 (96-108) mmol/L Carbon Dioxide 27 (22-29) mmol/L Anion Gap 12 (12-20) BUN 12 (9-16) mg/dL Creatinine 0.96 (0.5-1.4) mg/dL Estim Creat Clear Calc 55.1 Estimated GFR 56 Random Glucose 141 H (60-115) mg/dL Calcium 9.2 (8.4-10.2) mg/dL Total Bilirubin 0.4 (0.0-1.0) mg/dL AST 21 (5-31) U/L ALT 17 (0-31) U/L Alkaline Phosphatase 71 (39-117) U/L Total Protein 6.9 (6.5-8.0) g/dL Albumin 4.1 (3.5-5.0) g/dL Urine Color Yellow Urine Appearance Clear Urine pH 5.5 (5.0-9.0) Ur Specific Balm 1.020 (1.005-1.025) Urine Protein Negative (Neg-Trace) mg/dL Urine Glucose (UA) Negative (Negative) mg/dL Urine Ketones 40 (Negative) mg/dL Urine Blood Negative (Negative) Urine Nitrite Negative (Negative) Ur Leukocyte Esterase Negative (Negative) COVID-19 (ROMANA) Negative (Negative) COVID-19 Clin Com See Note Independent Interpretation I performed an independent interpretation of an: Plain X-Ray Interpretation: My interpretation is in agreement with the radiologist's impression of this imaging study. EXAMINATION: XR LUMBOSACRAL SPINE CLINICAL INFORMATION: pain COMPARISON: None available. TECHNIQUE: Three views of the lumbosacral spine. FINDINGS: Right upper quadrant clip is likely from cholecystectomy. There are 5 nonrib-bearing lumbar segments. There are moderate to severe degenerative changes with disc space narrowing, endplate sclerosis and osteophytes, and also facet arthropathy with sclerosis and osteophytes. XR/XR lumbar spine 2-3V IMPRESSION: Exam quality is low due to positioning and body habitus. L5 vertebral body is not well-demonstrated. Otherwise, no evidence of fracture. Multilevel degenerative disc disease and facet arthropathy. Electronically signed by: Domingo Shipley MD 04/24/2025 01:33 PM EDT RP Dictated By: Domingo Shipley MD Signed By: Electronically signed by Domingo Shipley MD 04/24/25 1337 Radiology Impression Discussion of test interpretation with radiology: I have reviewed the radiologist's reading. Independent Historian Clinical information obtained from an independent historian. History obtained from or confirmed by: EMS (EMS provided additional history and confirmed the history provided by the patient. ) Critical Care Time Critical Care Time Critical Care Time: Yes Total Critical Care Time: 38 Attestation: I spent 38 minutes of Critical Care Time with this patient. This does not include time spent on separately reported billable procedures. Discharge Plan Discharge Clinical Impression: Low back pain Qualifiers: Chronicity: acute Back pain laterality: right Sciatica presence: with sciatica Sciatica laterality: sciatica of right side Qualified Code(s): M54.41 - Lumbago with sciatica, right side Patient Disposition: [facility] Transfer Details: [facility] Prescriptions: No Action nifedipine 30 mg tablet extended release 30 mg PO DAILY metoprolol succinate 25 mg tablet extended release 24 hr 25 mg PO BEDTIME ascorbic acid (vitamin C) [Vitamin C] 1,000 mg Tablet 1,000 mg PO DAILY dorzolamide 2 % drops 1 drp ophthalmic (eye) TID latanoprost 0.005 % drops 1 drp ophthalmic (eye) BEDTIME aspirin 81 mg tablet,delayed release (DR/EC) 81 mg PO BEDTIME magnesium 250 mg tablet 500 mg PO DAILY Fish Oil 100-160-1,000 mg capsule 1,000 cap PO DAILY albuterol sulfate 90 mcg/actuation HFA aerosol inhaler 2 puff inhalation Q6H PRN (Reason: sob) (DME) lancets [FreeStyle Lancets] 28 gauge misc See Rx Instructions topical DAILY Qty: 100 Rx Instructions: As directed (DME) FreeStyle Lite Strips Strip See Rx Instructions Not Applicable DAILY Qty: 10 Rx Instructions: As directed Referrals: [facility] [Outside] Print Language: French
[2025-04-24 12:39] VITALS: BP 150/45; PULSE 78; RESP 18; TEMP 36.6; O2SAT 95
[2025-04-24 14:12] VITALS: RESP 20
[2025-04-24 15:58] VITALS: BP 111/54; PULSE 64; RESP 18; TEMP 36.7; O2SAT 98
[2025-04-24 16:11] LABS: MANUAL DIFF FLAG NO
[2025-04-24 16:13] LABS: Hematocrit 46.9 % (37.0-47.0); Hemoglobin 15.3 g/dl (12.0-16.0); Imm Gran Abs Auto 0.06 X10*3/uL (0.00-0.03); Imm Gran Pct Auto 0.8 % (0.0-0.4); Lymphocytes Absolute Auto 1.1 X10*3/uL (1.2-4.9); Mean Corpuscular HGB Conc 32.6 g/dl (31.0-35.0); Mean Corpuscular Hemoglobin 28.4 pg (27.0-33.0); Mean Corpuscular Volume 87.0 fL (80.0-98.0); NRBC Abs Auto 0.000 X10*3/uL (0.0-0.012); NRBC Pct Auto 0.0 /100WBC (0.0-0.2); Platelet Count 219 X10*3/uL (160-400); Red Blood Count 5.39 X10*6/uL (4.20-5.50); White Blood Count 7.9 X10*3/uL (4.8-10.8)
[2025-04-24 16:27] LABS: Alanine Aminotransferase 17 U/L (0-31); Albumin Level 4.1 g/dL (3.5-5.0); Alkaline Phosphatase 71 U/L (39-117); Anion Gap 12 (12-20); Aspartate Amino Transferase 21 U/L (5-31); Blood Urea Nitrogen 12 mg/dL (9-16); Calcium 9.2 mg/dL (8.4-10.2); Carbon Dioxide 27 mmol/L (22-29); Chloride 108 mmol/L (96-108); Creatinine Clr Calc Pharmacy 55.1; Estimated Glomerular Filt Rate 56; Potassium 4.7 mmol/L (3.3-5.1); Sodium 142 mmol/L (135-145); Total Protein 6.9 g/dL (6.5-8.0)
[2025-04-24 16:30] LABS: COVID-19 Test Negative (Negative); IDNOW Serial# 55D5AD1C
[2025-04-24 17:30] LABS: Appearance Urine Clear; Glucose Urine UA Negative (Negative); PH 5.5 (5.0-9.0); Specific Gravity - Urine 1.020 (1.005-1.025)
--- NOTE | 2025-04-24 17:34 | PC.NURSE ---
oob ambulating with wheeled walker, ambulated to bathroom without difficulty
--- NOTE | 2025-04-24 17:35 | PC.NURSE ---
med rec completed with patient using her med list from home
--- NOTE | 2025-04-24 18:47 | PHA.MEDREC ---
Pharmacy Consult ? Medication Reconciliation Pharmacy has reviewed the medication reconciliation completed by nursing. Confirmed with RN that the patient takes dorzolamide TID (morning, noon, and night) but was originally prescribed it with directions of BID dosing.
--- NOTE | 2025-04-24 19:12 | PC.NURSE ---
report givrn to Alejandrina CHAVEZ pt to be tranpsorted to ED overflow 6
[2025-04-24 21:17] VITALS: BP 143/57; PULSE 67
[2025-04-24] MEDS: Metoprolol Succinate ER 25 MG TAB.ER.24H PO (21:17)
[2025-04-24] MEDS: Dorzolamide HCl 2 % Ophth Sol 10 ML DRPBTL 1 DROP EYE-BOTH (21:18)
[2025-04-24] MEDS: Aspirin Enteric Coated 81 MG TABLET.DR PO (21:18)
[2025-04-24] MEDS: Latanoprost 0.005 % Ophth Sol 2.5 ML DROPS 1 DROP EYE-BOTH (21:18)
[2025-04-24 21:35] VITALS: BP 143/57; PULSE 67; RESP 18; TEMP 37.1; O2SAT 94
[2025-04-25 05:59] VITALS: BP 142/58; PULSE 67; RESP 16; TEMP 36.1; O2SAT 94
--- NOTE | 2025-04-25 07:11 | PC.NURSE ---
Addendum entered by Jossie Hahn RN 04/25/25 08:52: Patient is an 80 year old assigned female at with a history of KI, DM2, restrictive lung disease on oxygen via nasal cannula at baseline, sciatica, and osteoarthritis with bilateral knee replacements presenting to the emergency department today with right sided low back pain.physical exam Patient's clinical presentation is most consistent with a herniated disc and associated sciatica. Patient's lumbar x-ray showed no acute process. Patient has no evidence or signs of cauda equina. Patient unable tolerate walking. Patient states that when she had her knees replaced she was on oxycodone and dilaudid and continued having pain. Patient states that she would like to be stayed to be evaluated by physical therapy and case management because she is unable to walk at home. Patient alert and oriented. Morbidly obese. Lungs clear bilat. Respirations even and non-labored. Abdomen large, soft, non-tender with positive bowel sounds. Positive pedal pulses with trace edema. Patient with difficulty changing positions in the bed at this time. Original Note: Medical History KI on CPAP Dyspnea on exertion Restrictive lung disease Morbid obesity
[2025-04-25 08:54] VITALS: BP 142/58; PULSE 67; O2SAT 94
[2025-04-25] MEDS: Dorzolamide HCl 2 % Ophth Sol 10 ML DRPBTL 1 DROP EYE-BOTH ×2 (09:18→15:00)
[2025-04-25] MEDS: NIFEdipine ER 30 MG TAB.ER.24 PO (09:19)
--- NOTE | 2025-04-25 09:38 | PC.NURSE ---
PT at the bedside. Patient able to ambulate to the bathroom utilizing a walker.
[2025-04-25 15:11] VITALS: BP 103/50; PULSE 63; RESP 16; TEMP 36.8; O2SAT 93
--- NOTE | 2025-04-25 15:12 | MHC.CM.PN ---
Addendum entered by Danna Turcios 04/25/25 16:26: PT AGREEABLE TO STR AT [facility] BLS TRANSPORT NOT AVAILABLE UNTIL 1930 HOURS BOOKED WITH [facility] PER PTS INSURANCE Original Note: PT REPORTS SHE LIVES WITH A ROOMMATE AND IS INDEPENDENT WITH CARE SHE HAS A TUBE PULLER ONCE PER WEEK SHE HAS A CANE WALKER, O2 PRN AND A CPAP SHE SAYS EDUARDO BAUTISTA WAS HER PCP, SHE DOES NOT KNOW WHO THE NEW ONE WILL BE SHE SAYS HER ROOMMATE HAS HER HCP, SHE UNDERSTANDS ONE WILL BE NEEDED FOR REHAB PT AWARE REHAB WAS RECOMMENDED [facility] PREFERRED SNF REFERRALS SENT TO SEVERAL LOCAL SNFS, [facility] IS THE ONLY BED OFFER DC TO [facility] PENDING AUTH
--- NOTE | 2025-04-25 18:17 | PC.NURSE ---
Report given to Melissa CHAVEZ at [facility].
[2025-04-25 18:35] VITALS: BP 154/67; PULSE 70; RESP 18; TEMP 36.3; O2SAT 94
[2025-04-25 20:03] VITALS: BP 148/60; PULSE 70; RESP 19; TEMP 36.4; O2SAT 94
== END 2025-04-25 20:03 | disposition skilled nursing facility (03) ==
PROVIDERS: Physician Assistant Medical; Emergency Provider Emergency Medicine
DX: M54.41 Lumbago with sciatica, right side (principal); G47.33 Obstructive sleep apnea (adult) (pediatric); R26.81 Unsteadiness on feet; Z11.52 Encounter for screening for COVID-19; Z79.899 Other long term (current) drug therapy
CPT/HCPCS: 72100; 80053; 81003; 85025; 87635; 96372; 96374; 97161; 99285; 99291; J1171; J1885; J2919

== ENCOUNTER → 2025-04-24 12:43 | Outpatient (BNV) | payer MEDICARE, SELFPAY | PROVIDERS: Visit Provider Radiology Diagnostic Radiology | DX: M51.360 Other intervertebral disc degeneration, lumbar region with discogenic back pain only (principal) | CPT/HCPCS: 72100 ==

== ENCOUNTER 2025-06-03 15:08 | Outpatient (AMB) | payer MEDICARE, SELFPAY ==
--- NOTE | 2025-06-03 08:47 | A.OFFPC_ITS ---
Vital Signs 06/03/25 15:26 Height 5 ft Weight 265 lb BMI 51.7 BP 138/76 Blood Pressure Location Rt brachial Position Sitting Pulse 72 Pulse Source Pulse Oximeter Temp 97.9 F Temp Source Temporal Artery Scan Pulse Oximetry (%) 95 Oxygen Delivery Method Room Air Intake Visit Reasons: f/u -tia pt Dynamiter Required: No Accompanied by: Friend Allergies Cmxlvwg-VJF-PeV Reductase Inhibitor (ESQFZBH-SAM-PXH REDUCTASE INHIBITOR) Allergy (Unknown, Verified 06/03/25 15:27) LEG+MUSCLE CRAMPS ENVIROMENTAL Allergy (Intermediate, Uncoded 04/24/25 12:08) SNEEZING, WATERY EYES Medication List - Last Reconciled 06/03/25 by RENE Garza albuterol sulfate 90 mcg/actuation 2 puffs inhalation Q6H PRN ascorbic acid (vitamin C) (Vitamin C) 1,000 mg PO DAILY aspirin 81 mg PO BEDTIME blood sugar diagnostic (FreeStyle Lite Strips) As directed cholecalciferol (vitamin D3) 25 mcg PO DAILY dorzolamide 2% 1 drp ophthalmic (eye) TID gabapentin 300 mg PO TID lancets (FreeStyle Lancets) As directed latanoprost 0.005% 1 drp ophthalmic (eye) BEDTIME magnesium 500 mg PO DAILY metoprolol succinate ER 25 mg PO BEDTIME nifedipine ER 30 mg PO DAILY omega 2-pmb-nlp-fish oil 100-160-1,000 mg (Fish Oil) 1,000 caps PO DAILY tramadol 50 mg PO DAILY PRN Tobacco use date assessed: 06/03/25 Fall risk assessment: No Falls in past year Last assessed Fall Risk: 06/03/25 Dental Screening Dental Screen Date: 06/03/25 Did you have a dental visit in the last 12 months?: No Did you have a dental problem in the last 6 months where you did not have access to dental care?: No HPI HPI Comments History of Present Illness Details 80 year old female here for follow up of low back pain with right sided sciatica. She has had low back pain on and off for years. In April she states pain increased significantly. She went to the ER on 04/24 and had xrays. She was kept overnight for pain control and sent to [facility] for 2 weeks. She is not getting PT/OT at home every week. She is on Gabapentin and Tramadol for pain with some relief. She went to see a Chiropractor who recommended an MRI. Patient states if her problem can be fixed with surgery she is open to that. She would like to get an MRI done. She also needs refill of Gabapentin and Tramadol. [facility] Medical History KI on CPAP Dyspnea on exertion Restrictive lung disease Morbid obesity Family History (Updated 06/03/25 @ 15:33 by Gail Walker MA) Mother No problems noted. Father Colon cancer Sister Crohn disease Social History Housing: House Alcohol intake: former Patient Tobacco Use Status: Never used Tobacco e-Cigarette/Vaping Use: Never Used service: Yes Current occupational status: retired Cognitive needs: Yes (walker) Hearing needs: No Vision needs: Yes (rx glasses) Questionnaire PHQ-9 Over the last 2 weeks, how often have you been bothered by any of the following problems? 1. Little interest or pleasure in doing things: not at all 2. Feeling down, depressed, or hopeless: not at all 3. Trouble falling or staying asleep, or sleeping too much: not at all 4. Feeling tired or having little energy: not at all 5. Poor appetite or overeating: not at all 6. Feeling bad about yourself - or that you are a failure or have let yourself or your family down: not at all 7. Trouble concentrating on things, such as reading the newspaper or watching television: not at all 8. Moving or speaking so slowly that other people could have noticed. Or the opposite - being so fidgety or restless that you have been moving around a lot more than usual: not at all 9. Thoughts that you would be better off or of hurting yourself in some way: not at all Total score: 0 Source: Developed by Drs. Ronak Coronel, Afia Anguiano, Chris Ac and colleagues, with an educational gauri from [employer]. Thrive Questionnaire Date Thrive assessed: 06/03/25 I am a: Patient Within the past 12 months, did the food you bought not last and you didn't have the money to get more?: Never true Within the past 12 months, did you worry whether your food would run out before you got money to buy more?: Never true Do you have trouble paying for medicines?: No Do you have trouble getting transportation to medical appointments?: No Do you have trouble paying your heating and electricity bill?: No Do you have trouble taking care of your child, family member or friend?: No Do you have trouble with day-to-day activities such as bathing, preparing meals, shopping, managing finances, etc.?: No Are you currently unemployed and looking for a job?: No Are you interested in more education?: No THRIVE Score: 0 AUDIT C Alcohol Use Questionnaire (AUDIT-C) 1. How often do you have a drink containing alcohol?: Monthly or less 2. How many drinks containing alcohol do you have on a typical day when you are drinking?: 1 or 2 3. How often do you have six or more drinks on one occasion?: Less than monthly Total Score: 2 LONNY-7 AMB Questionnaire LONNY-7 Date LONNY - 7 assessed: 06/03/25 Feeling nervous, anxious, or on edge: 0 = Not at all Not being able to stop or control worryin = Not at all Worrying too much about different things: 0 = Not at all Trouble relaxin = Not at all Being so restless that it is hard to sit still: 0 = Not at all Becoming easily annoyed or irritable: 0 = Not at all Feeling afraid as if something awful might happen: 0 = Not at all Total LONNY-7 score (0-4 normal; 5-9 mild; 10-14 moderate; 15-21 severe): 0 Source: Developed by Drs. Ronak Coronel, Afia Anguiano, Chris Ac and colleagues, with an educational gauri from [employer]. Review of Systems Const Details: CONSTITUTIONAL Negative HEAD/NECK Negative EAR/NOSE/MOUTH/THROAT Negative RESPIRATORY Negative CARDIOVASCULAR Negative MUSCULOSKELETAL low back pain with right sciatica NEUROLOGICAL Paresthesias down to ankle PSYCHIATRIC Negative Physical exam (Primary Care) Vital Signs: Last Vital Signs Temp 97.9 F 06/03/25 15:26 Pulse 72 06/03/25 15:26 BP 138/76 06/03/25 15:26 Pulse Ox 95 06/03/25 15:26 Oxygen Delivery Method Room Air 06/03/25 15:26 BMI result Body Mass Index 51.7 GENERAL Well developed, obese, in no apparent distress, walking with walker HEENT Head-Normocephalic Eyes- PERRLA, EOMI, Conjuctiva clear, lids WNL Neck- Supple, No lymphadenopathy, thyroid WNL RESPIRATORY Normal I:E, Clear to auscultation CARDIOVASCULAR Regular, rate and rhthym, No murmurs or rubs Muculoskeletal Back-Decreased ROM, Tender in right Lumbar, Tender with motion, Straight leg raise Positive, DTR 2+ symmetrical, Gait slow with walker NEUROLOGICAL Gait slow with walker PSYCHIATRIC Oriented to person, place and time Mood and affect WNL Appearance WNL Speech WNL Thought processes WNL Tobacco/Smoking Status: Tobacco use Status Tobacco use date assessed 06/03/25 06/03/25 08:48 Patient Tobacco Use Status Never used Tobacco 06/03/25 08:48 e-Cigarette/Vaping Use Never Used 06/03/25 08:48 PHQ-9: PHQ-9 Score PHQ-9: Total score 0 06/03/25 15:36 Thrive Assessment: Date of Thrive Assessment Date Thrive assessed 06/03/25 06/03/25 08:48 Results Reviewed Results Reviewed: XR/XR lumbar spine 2-3V IMPRESSION: Exam quality is low due to positioning and body habitus. L5 vertebral body is not well-demonstrated. Otherwise, no evidence of fracture. Multilevel degenerative disc disease and facet arthropathy. Coding Level of Care Code Established Pt Est Pt Level 3 (08953) Patient Type Established Diagnoses Chronic right-sided low back pain with right-sided sciatica M54.41; G89.29 Chronicity: chronic Back pain laterality: right Morbid obesity with BMI of 50.0-59.9, adult E66.01; Z68.43 Time Spent (min) 25 Comment Time spent reviewing chart, H&P, ordering MRI and referral, orders and patient education Assessment & Plan Assessment & Plan (1) Low back pain with right-sided sciatica: Code(s): M54.41 - Lumbago with sciatica, right side Qualifiers: Chronicity: chronic Back pain laterality: right Qualified Code(s): M54.41 - Lumbago with sciatica, right side; G89.29 - Other chronic pain Plan: Will request MRI. [facility] Will refill Gabapentin and Tramadol for pain. Patient to follow up in 2 months or sooner if symptoms persist or worsen. (2) Morbid obesity with BMI of 50.0-59.9, adult: Code(s): E66.01 - Morbid (severe) obesity due to excess calories; Z68.43 - Body mass index [BMI] 50.0-59.9, adult Plan: BMI today was 51.7. Discussed diet and exercise. Orders: Orders MR lumbar spine wo con Today M54.16 - Radiculopathy, lumbar region Referrals Neuro Spine Referral M54.16 - Radiculopathy, lumbar region Medications: New gabapentin 300 mg PO TID 90 caps 2RF Refilled tramadol 50 mg PO DAILY PRN 30 tabs 0RF pain
[2025-06-03 15:26] VITALS: BP 138/76; PULSE 72; TEMP 36.6; O2SAT 95; BMI 51.7
== END 2025-06-03 16:07 | disposition home or self-care (01) ==
LOC: HO.HMCHD 15:09
PROVIDERS: Visit Provider Physician Assistant Medical
DX: M54.41 Lumbago with sciatica, right side (principal); G89.29 Other chronic pain; E66.01 Morbid (severe) obesity due to excess calories; Z68.43 Body mass index [BMI] 50.0-59.9, adult

== ENCOUNTER → 2025-06-03 15:08 | Outpatient (BNVA) | payer MEDICARE, SELFPAY | PROVIDERS: Visit Provider Physician Assistant Medical | DX: M54.41 Lumbago with sciatica, right side (principal); E66.01 Morbid (severe) obesity due to excess calories; G89.29 Other chronic pain; M54.16 Radiculopathy, lumbar region; Z68.43 Body mass index [BMI] 50.0-59.9, adult | CPT/HCPCS: 96127; 99212 ==

== ENCOUNTER 2025-07-11 13:39 | Outpatient (REF) | payer MEDICARE, SELFPAY ==
--- NOTE | ~2025-07-11 | MR_ITS ---
EXAM: MRI Lumbar Spine without Contrast. TECHNIQUE: Multiplanar multisequence MRI of the lumbar spine with performed without contrast. INDICATION: M54.16 - Radiculopathy, lumbar region PRIOR: November 19, 2024 x-ray FINDINGS: 5 non-rib bearing lumbar segments are present on x-ray. Marrow and end-plates: Modic 2 signal changes are present T12-L1, L1-2, L2-3, L3-4, and Modic 1 signal is present at L4-5, and Modic l signal s present at L5-S1. Alignment: There is mild convex right curvature of the lower lumbar spine. T12-L1 at L1-2Subtle retrolisthesis. L3-4 and L4-5: Mild grade 1 anterolisthesis. Soft tissues: There is moderate fatty streaking and paraspinal musculature. Conus: The termination of conus medullaris is within normal limits at the level of L1. T12-L1: There is mild loss of disc height with circumferential broad-based disc bulge and endplate osteophytes. There is focal protrusion and osteophyte complex severely narrowing the right subarticular zone. There is mild spinal stenosis. Moderate facet arthropathy contributes. Foraminal narrowing is mild. L1-L2: Circumferential broad-based disc bulge and mild ligamentum flavum thickening results in mild spinal stenosis without foraminal narrowing. L2-L3: There is disc desiccation, loss disc height with circumferential broad-based disc bulge and broad posterior disc extrusion. There are endplate osteophytes. There is moderate facet arthropathy and ligament flavum thickening resulting in severe spinal stenosis and mild bilateral foraminal narrowing. L3-L4: There is severe narrowing of the disc space and grade 1 anterolisthesis with circumferential broad-based disc bulge and central and right subarticular zone extrusion. There is moderate facet arthropathy and ligamentum flavum thickening resulting in severe spinal stenosis. There is mild bilateral foraminal narrowing. L4-L5: There is severe disc space narrowing and grade 1 anterolisthesis with endplate osteophytes. There is moderate facet arthropathy and ligamentum flavum thickening resulting in mild spinal stenosis and severe right and moderate left subarticular zone narrowing likely with encroachment of L5 nerve roots. There is mild bilateral foraminal narrowing. L5-S1: There is severe disc space narrowing with circumferential broad-based disc bulge and endplate osteophytes. There is severe facet arthropathy on the right and moderate changes in the left. There is mild to moderate spinal stenosis and mild left greater than right subarticular zone narrowing. There is mild to moderate bilateral foraminal narrowing. Disc contacts the L5 nerve roots in the far lateral zone. MR/MR lumbar spine wo con IMPRESSION: T12-L1: There is severe narrowing the right subarticular zone encroaching on the right L1 nerve root. There is mild spinal stenosis. L1-L2: There is mild spinal stenosis L2-L3: There is severe spinal stenosis. L3-L4: There is severe spinal stenosis. L4-L5: There is mild spinal stenosis and severe right and moderate left subarticular zone narrowing likely with encroachment of L5 nerve roots. L5-S1: There is mild to moderate spinal stenosis and mild left greater than right subarticular zone narrowing. There is mild to moderate bilateral foraminal narrowing. Disc contacts the L5 nerve roots in the far lateral zone, left greater than right. Electronically signed by: Domingo Shipley MD 07/11/2025 02:52 PM EDT
== END 2025-07-11 13:40 | disposition home or self-care (01) ==
LOC: HO.MRI 13:39
PROVIDERS: Visit Provider Physician Assistant Medical
DX: M54.16 Radiculopathy, lumbar region (principal)
CPT/HCPCS: 72148

== ENCOUNTER → 2025-07-11 13:45 | Outpatient (BNV) | payer MEDICARE, SELFPAY | PROVIDERS: Visit Provider Radiology Diagnostic Radiology | DX: M54.16 Radiculopathy, lumbar region (principal); M99.63 Osseous and subluxation stenosis of intervertebral foramina of lumbar region | CPT/HCPCS: 72148 ==

== ENCOUNTER 2025-07-24 10:52 | Outpatient (AMB) | payer MEDICARE, SELFPAY ==
--- NOTE | 2025-07-24 10:58 | A.SPINEOV_ITS ---
Vital Signs 07/24/25 11:08 Height 5 ft Weight 254 lb BMI 49.6 Intake Visit Reasons: lumbar radiculopathy Intake Note: Ms. Magaña is here today c/o severe low back pain that radiates to the right leg. Orthotic Practitioner Required: No Allergies Idltqtk-HEM-ImB Reductase Inhibitor (GYGMBOA-IGI-WVM REDUCTASE INHIBITOR) Allergy (Unknown, Verified 07/24/25 11:09) LEG+MUSCLE CRAMPS ENVIROMENTAL Allergy (Intermediate, Uncoded 04/24/25 12:08) SNEEZING, WATERY EYES Physical Exam Vital Signs: BMI result Body Mass Index 49.6 Assessment & Plan Assessment & Plan (1) Lumbar stenosis: Code(s): M48.061 - Spinal stenosis, lumbar region without neurogenic claudication Category: Medical Plan Dear Ghazala, Thank you for referring Mr Magaña to our office today. She is a very nice 80-year-old female with history of occasional low back issues, generally well managed with a chiropractor over the years, who in early June developed a severe right leg radiculopathy that started spontaneously 1 morning. It was extreme pain that ultimately ended up in the emergency room. She was managed with gabapentin and tramadol as well as extra-strength Tylenol. She still takes this regimen and the pain now seems to be back down to quite a manageable level. She is no longer walking with a walker, she is at home and otherwise functioning okay. She has trouble walking because of shortness of breath, but in general the pain in her leg is no longer keeping her from being mobile. She had a lumbar MRI showing severe stenosis at multiple levels and came in today to see us for an evaluation. She is continuing to do PT at home. PMH: She is a history of sleep apnea on CPAP, morbid obesity and restrictive lung disease. She tells me she uses oxygen at home periodically. She does see pulmonology here at [facility], I do not see an FEV1 listed, but there is apparently PFTs which have been done in the past. I do not have access to them. She is a borderline diabetic. She has a history of hypertension which is well controlled. History of partial hysterectomy, appendectomy both done through laparotomy, cholecystectomy, cataracts both eyes, both knees replaced. Denies any history of heart attacks, strokes, liver or kidney disease, bleeding disorders, blood clots, unusual infections. Social hx: Does not smoke, drink use any recreational drugs Medications: Nifedipine, dorzolamide, metoprolol, latanoprost, baby aspirin, magnesium, albuterol, gabapentin, tramadol Allergies: Statin Physical exam: Able to easily stand up out of a chair independently with minimal effort, walk down the hallways, appears comfortable, strength in the lower extremities is normal, reflexes absent. Imaging review: Lumbar MRI shows multiple levels of degenerative changes and severe arthritis, she has severe stenosis at L2-3 and L3-4 as well as lateral recess stenosis at L4-5. There is a spondylolisthesis at L3-4 as well. 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 Impression: 80-year-old female who has significant medical comorbidities including morbid obesity, obstructive sleep apnea on CPAP, restrictive lung disease on home oxygen occasionally, presents with a resolving right leg radiculopathy which is likely secondary to her lumbar stenosis. Her pain right now is very well managed with gabapentin, Tylenol and occasional tramadol. She has severe stenosis at L2-3 and L3-4, and even to a degree at L4-5 in the lateral recess. Since her pain is improving, we generally would just let this resolve on its own. If it continues or comes back, there is potential she may be a candidate for surgical intervention, but she does have comorbidities that need to be considered, because the surgery is under general anesthesia. Therefore I think a cautious approach with her is a good way to start, and I will see her back in 6 weeks to see if she is continuing to get better. If the pain comes back in his disabling, we can talk with anesthesia to see if they think she would be a candidate or not for general anesthesia. Thank you for allowing us to care for your patient. The total time spent with this visit with this patient was 45 minutes reviewing history, physical exam, lumbar imaging review, and implementation of treatment plan or further diagnostic testing Jayden Vaughn MD,PhD [facility] Coding Level of Care Code New Pt Level 4 (29503) Diagnoses Lumbar stenosis M48.061
[2025-07-24 11:08] VITALS: BMI 49.6
== END 2025-07-24 11:50 | disposition home or self-care (01) ==
LOC: HO.HNS 10:53
PROVIDERS: PCP Physician Assistant Medical; Referring Provider Physician Assistant Medical; Visit Provider Physician Assistant
DX: M48.061 Spinal stenosis, lumbar region without neurogenic claudication (principal)
CPT/HCPCS: 99204

== ENCOUNTER → 2025-07-24 10:52 | Outpatient (BNVA) | payer MEDICARE, SELFPAY | PROVIDERS: PCP Physician Assistant Medical; Referring Provider Physician Assistant Medical; Visit Provider Physician Assistant | DX: M48.061 Spinal stenosis, lumbar region without neurogenic claudication (principal) | CPT/HCPCS: 99202 ==

== ENCOUNTER 2025-08-11 15:58 | Outpatient (AMB) | payer MEDICARE, SELFPAY ==
--- NOTE | 2025-08-11 09:14 | A.OFFPC_ITS ---
Vital Signs 08/11/25 09:18 Height 5 ft Intake Visit Reasons: Est Patient r/s'd from 08/04/25 - see comments Hand Salter Required: No Accompanied by: Self / Same As Patient Allergies Ojtphpk-KPW-PtR Reductase Inhibitor (AEEICXW-VKJ-CWB REDUCTASE INHIBITOR) Allergy (Unknown, Verified 08/11/25 09:18) LEG+MUSCLE CRAMPS ENVIROMENTAL Allergy (Intermediate, Uncoded 04/24/25 12:08) SNEEZING, WATERY EYES Tobacco use date assessed: 08/11/25 Fall risk assessment: No Falls in past year Last assessed Fall Risk: 08/11/25 Dental Screening Dental Screen Date: 08/11/25 Did you have a dental visit in the last 12 months?: Yes Did you have a dental problem in the last 6 months where you did not have access to dental care?: No [facility] Medical History Chronic right-sided lumbar radiculopathy KI on CPAP Dyspnea on exertion Restrictive lung disease Morbid obesity Family History Mother No problems noted. Father Colon cancer Sister Crohn disease Social History Housing: House Alcohol intake: former Patient Tobacco Use Status: Never used Tobacco e-Cigarette/Vaping Use: Never Used service: Yes Current occupational status: retired Cognitive needs: Yes (walker) Hearing needs: No Vision needs: Yes (rx glasses) Questionnaire PHQ-9 Over the last 2 weeks, how often have you been bothered by any of the following problems? 1. Little interest or pleasure in doing things: not at all 2. Feeling down, depressed, or hopeless: not at all 3. Trouble falling or staying asleep, or sleeping too much: not at all 4. Feeling tired or having little energy: not at all 5. Poor appetite or overeating: not at all 6. Feeling bad about yourself - or that you are a failure or have let yourself or your family down: not at all 7. Trouble concentrating on things, such as reading the newspaper or watching television: not at all 8. Moving or speaking so slowly that other people could have noticed. Or the opposite - being so fidgety or restless that you have been moving around a lot more than usual: not at all 9. Thoughts that you would be better off or of hurting yourself in some way: not at all Total score: 0 Source: Developed by Drs. Ronak Coronel, Chris Casey and colleagues, with an educational gauri from [employer]. Thrive Questionnaire Date Thrive assessed: 08/11/25 I am a: Patient Within the past 12 months, did the food you bought not last and you didn't have the money to get more?: Never true Within the past 12 months, did you worry whether your food would run out before you got money to buy more?: Never true Do you have trouble paying for medicines?: No Do you have trouble getting transportation to medical appointments?: No Do you have trouble paying your heating and electricity bill?: No Do you have trouble taking care of your child, family member or friend?: No Do you have trouble with day-to-day activities such as bathing, preparing meals, shopping, managing finances, etc.?: No Are you currently unemployed and looking for a job?: No Are you interested in more education?: No THRIVE Score: 0 AUDIT C Alcohol Use Questionnaire (AUDIT-C) 1. How often do you have a drink containing alcohol?: Never 3. How often do you have six or more drinks on one occasion?: Never Total Score: 0 LONNY-7 AMB Questionnaire LONNY-7 Date LONNY - 7 assessed: 08/11/25 Feeling nervous, anxious, or on edge: 0 = Not at all Not being able to stop or control worryin = Not at all Worrying too much about different things: 0 = Not at all Trouble relaxin = Not at all Being so restless that it is hard to sit still: 0 = Not at all Becoming easily annoyed or irritable: 0 = Not at all Feeling afraid as if something awful might happen: 0 = Not at all Total LONNY-7 score (0-4 normal; 5-9 mild; 10-14 moderate; 15-21 severe): 0 Source: Developed by Drs. Ronak Coronel, Chris Casey and colleagues, with an educational gauri from [employer]. Physical exam (Primary Care) Tobacco/Smoking Status: Tobacco use Status Tobacco use date assessed 06/03/25 06/03/25 08:48 Patient Tobacco Use Status Never used Tobacco 06/03/25 08:48 e-Cigarette/Vaping Use Never Used 06/03/25 08:48 Thrive Assessment: Date of Thrive Assessment Date Thrive assessed 06/03/25 06/03/25 08:48 Coding
[2025-08-11 09:18] VITALS: BP 130/82; PULSE 74; TEMP 36.3; O2SAT 96; BMI 50.0
--- NOTE | 2025-08-11 16:14 | A.OFFPC_ITS ---
Vital Signs 08/11/25 09:18 Height 5 ft Weight 256 lb BMI 50.0 BP 130/82 Blood Pressure Location Lt brachial Position Sitting Pulse 74 Pulse Source Pulse Oximeter Temp 97.4 F Temp Source Temporal Artery Scan Pulse Oximetry (%) 96 Oxygen Delivery Method Room Air Intake Visit Reasons: Est Patient r/s'd from 08/04/25 - see comments Qa Consultant Required: No Accompanied by: Friend Allergies Nxpijpq-PNT-NhL Reductase Inhibitor (SXYQZRQ-OLK-LVP REDUCTASE INHIBITOR) Allergy (Unknown, Verified 08/11/25 09:18) LEG+MUSCLE CRAMPS ENVIROMENTAL Allergy (Intermediate, Uncoded 04/24/25 12:08) SNEEZING, WATERY EYES Medication List - Last Reconciled 08/12/25 by RENE Garza albuterol sulfate 90 mcg/actuation 2 puffs inhalation Q6H PRN ascorbic acid (vitamin C) (Vitamin C) 1,000 mg PO DAILY aspirin 81 mg PO BEDTIME blood sugar diagnostic (FreeStyle Lite Strips) As directed cholecalciferol (vitamin D3) 25 mcg PO DAILY dorzolamide 2% 1 drp ophthalmic (eye) TID gabapentin 300 mg PO TID lancets (FreeStyle Lancets) As directed latanoprost 0.005% 1 drp ophthalmic (eye) BEDTIME magnesium 500 mg PO DAILY metoprolol succinate ER 25 mg PO BEDTIME nifedipine ER 30 mg PO DAILY omega 4-egk-fnw-fish oil 100-160-1,000 mg (Fish Oil) 1,000 caps PO DAILY tramadol 50 mg PO DAILY PRN Tobacco use date assessed: 08/11/25 Fall risk assessment: No Falls in past year Last assessed Fall Risk: 08/11/25 Dental Screening Dental Screen Date: 08/11/25 Did you have a dental visit in the last 12 months?: No Did you have a dental problem in the last 6 months where you did not have access to dental care?: No HPI HPI Comments History of Present Illness Details The patient is an 80-year-old female with restrictive lung disease, KI on CPAP, chronic low back pain and Obesity presenting for a follow-up visit for management of chronic back pain and medication renewal. The patient was recently evaluated by a clinical documentation specialist who recommended conservative management and continued observation of her back pain, with surgery as a potential future option if the pain worsens or does not resolve. She has a follow-up appointment scheduled with the specialist in six weeks. The patient reports her back pain is most severe at night when in bed, causing sleep disturbance. She typically wakes after 2-3 hours, takes Tylenol, and is then able to sleep for another 4-5 hours, totaling 6-8 hours of sleep depending on the pain level. The pain is located in the buttock, middle of the back, and radiates down into the posterior thigh. For pain management, she takes tramadol once daily at night and has been attem pting to reduce her gabapentin intake from three times a day to twice a day, but feels she may need to return to the previous frequency. . She has a few tramadol pills remaining and will need a prescription renewal. The patient also reports chronic numbness in her fingers and feet. Regarding immunizations, the patient has had five previous COVID-19 shots but did not receive one last year. She has not yet received a flu shot this season, but plans on getting it at her pharmacy. [facility] Medical History (Updated 08/12/25 @ 09:30 by RENE Garza) Chronic right-sided lumbar radiculopathy Dyspnea on exertion Morbid obesity KI on CPAP Polyneuropathy Restrictive lung disease Family History (Updated 08/11/25 @ 16:18 by Gail Walker MA) Mother No problems noted. Father Colon cancer Sister Crohn disease Social History Housing: House Alcohol intake: former Patient Tobacco Use Status: Never used Tobacco e-Cigarette/Vaping Use: Never Used service: No Current occupational status: retired Cognitive needs: Yes (walker) Hearing needs: No Vision needs: Yes (rx glasses) Questionnaire PHQ-9 Over the last 2 weeks, how often have you been bothered by any of the following problems? 1. Little interest or pleasure in doing things: not at all 2. Feeling down, depressed, or hopeless: not at all 3. Trouble falling or staying asleep, or sleeping too much: not at all 4. Feeling tired or having little energy: not at all 5. Poor appetite or overeating: not at all 6. Feeling bad about yourself - or that you are a failure or have let yourself or your family down: not at all 7. Trouble concentrating on things, such as reading the newspaper or watching television: not at all 8. Moving or speaking so slowly that other people could have noticed. Or the opposite - being so fidgety or restless that you have been moving around a lot more than usual: not at all 9. Thoughts that you would be better off or of hurting yourself in some way: not at all Total score: 0 Depression Screening Interpretation: Negative Depression Screening Done: Yes Source: Developed by Drs. Ronak Coronel, Afia Anguiano, Chris Ac and colleagues, with an educational gauri from [employer] Thrive Questionnaire Date Thrive assessed: 08/11/25 I am a: Patient Within the past 12 months, did the food you bought not last and you didn't have the money to get more?: Never true Within the past 12 months, did you worry whether your food would run out before you got money to buy more?: Never true Do you have trouble paying for medicines?: No Do you have trouble getting transportation to medical appointments?: No Do you have trouble paying your heating and electricity bill?: No Do you have trouble taking care of your child, family member or friend?: No Do you have trouble with day-to-day activities such as bathing, preparing meals, shopping, managing finances, etc.?: No Are you currently unemployed and looking for a job?: No Are you interested in more education?: No THRIVE Score: 0 AUDIT C Alcohol Use Questionnaire (AUDIT-C) 1. How often do you have a drink containing alcohol?: Monthly or less 2. How many drinks containing alcohol do you have on a typical day when you are drinking?: 1 or 2 3. How often do you have six or more drinks on one occasion?: Less than monthly Total Score: 2 LONNY-7 AMB Questionnaire LONNY-7 Date LONNY - 7 assessed: 08/11/25 Feeling nervous, anxious, or on edge: 0 = Not at all Not being able to stop or control worryin = Not at all Worrying too much about different things: 0 = Not at all Trouble relaxin = Not at all Being so restless that it is hard to sit still: 0 = Not at all Becoming easily annoyed or irritable: 0 = Not at all Feeling afraid as if something awful might happen: 0 = Not at all Total LONNY-7 score (0-4 normal; 5-9 mild; 10-14 moderate; 15-21 severe): 0 Source: Developed by Drs. Ronak Coronel, Afia Anguiano, Chris Ac and colleagues, with an educational gauri from [employer] Review of Systems Narrative - Musculoskeletal: Reports back pain located in the buttock and middle back, with some radiation to the posterior thigh. - Neurological: Reports chronic numbness in fingers and feet. - Sleep: Reports broken sleep due to pain, waking after 2-3 hours. Physical exam (Primary Care) Vital Signs: Last Vital Signs Temp 97.4 F 08/11/25 09:18 Pulse 74 08/11/25 09:18 BP 130/82 08/11/25 09:18 Pulse Ox 96 08/11/25 09:18 Oxygen Delivery Method Room Air 08/11/25 09:18 BMI result Body Mass Index 50.0 GENERAL Well developed, obese, in no apparent distress HEENT Head-Normocephalic Neck- Supple, No lymphadenopathy, thyroid WNL RESPIRATORY Normal I:E, Clear to auscultation CARDIOVASCULAR Regular, rate and rhythm, No murmurs or rubs MUSCULOSKELETAL Back-Decreased ROM, Tender in Lumbar, Tender with motion, DTR 2+ symmetrical, Gait slow with walker NEUROLOGICAL Gait normal PSYCHIATRIC Oriented to person, place and time Mood and affect WNL Appearance WNL Speech WNL Thought processes WNL Tobacco/Smoking Status: Tobacco use Status Tobacco use date assessed 08/11/25 08/11/25 16:18 Patient Tobacco Use Status Never used Tobacco 08/11/25 16:18 e-Cigarette/Vaping Use Never Used 08/11/25 16:18 PHQ-9: PHQ-9 Score PHQ-9: Total score 0 08/11/25 16:18 Depression Screening Interpretation: Negative Thrive Assessment: Date of Thrive Assessment Date Thrive assessed 08/11/25 08/11/25 16:18 Coding Level of Care Code Established Pt Est Pt Level 4 (79651) Patient Type Established Diagnoses Chronic right-sided lumbar radiculopathy M54.16 Lumbar stenosis M48.061 Polyneuropathy G62.9 Morbid obesity E66.01 Time Spent (min) 30 Comment Time spent on chart review, medication reconciliation, H&P, patient education and orders. Assessment & Plan Assessment & Plan (1) Chronic right-sided lumbar radiculopathy: Code(s): M54.16 - Radiculopathy, lumbar region Category: Medical Plan: The patient was recently seen by a clinical documentation specialist who recommended watchful waiting, with surgery as an option if pain worsens. The patient will continue on her current pain medication regimen, including tramadol at night and gabapentin. She may increase her gabapentin back to three times per day if needed. A new prescription for tramadol will be sent to the pharmacy. The plan is to follow up in three months for medication monitoring and symptom assessment. She will also follow up with her clinical documentation specialist in six weeks. (2) Lumbar stenosis: Code(s): M48.061 - Spinal stenosis, lumbar region without neurogenic claudication Category: Medical Plan: Patient has follow up with clinical documentation specialist in 6 weeks. (3) Polyneuropathy: Code(s): G62.9 - Polyneuropathy, unspecified Category: Medical Plan: The patient's chronic numbness in her fingers and feet was noted. This will continue to be monitored, with a follow-up scheduled in three months. (4) Morbid obesity: Comment: BMI today was 50.0 Code(s): E66.01 - Morbid (severe) obesity due to excess calories Category: Medical Plan: Patient's BMI today was 50.0. Patient has maintained the same weight. Diet and exercise were reviewed. Plan I discussed the clinical documentation specialist's recommendation for conservative management of the patient's back pain, with a plan to monitor her symptoms. We reviewed her medication regimen, including her attempt to decrease gabapentin and the need for a tramadol refill, for which I will send a new prescription. I recommended she get her annual flu shot and an updated COVID-19 vaccination to maintain her immunity. We scheduled a follow-up in three months to keep a close eye on things while she is on these medications, but I advised her to call if she needs to be seen sooner. Patient Instructions: - Follow up with your clinical documentation specialist in six weeks. - You can go back to taking your gabapentin three times a day if you feel you need it for pain. - Continue taking one tramadol pill at night. - I have sent a new prescription for tramadol to your pharmacy. - Get your annual flu shot and an updated COVID-19 shot. You can get these at the pharmacy. - Please schedule a follow-up appointment in our office in three months. - Call us if your pain gets worse or if you need to be seen sooner for any reason.
== END 2025-08-11 16:42 | disposition home or self-care (01) ==
LOC: HO.HMCHD 15:58
PROVIDERS: PCP Physician Assistant Medical; Visit Provider Physician Assistant Medical
DX: M54.16 Radiculopathy, lumbar region (principal); M48.061 Spinal stenosis, lumbar region without neurogenic claudication; G62.9 Polyneuropathy, unspecified; E66.01 Morbid (severe) obesity due to excess calories

== ENCOUNTER → 2025-08-11 15:58 | Outpatient (BNVA) | payer MEDICARE, SELFPAY | PROVIDERS: PCP Physician Assistant Medical; Visit Provider Physician Assistant Medical | DX: G47.33 Obstructive sleep apnea (adult) (pediatric) (principal); M54.50 Low back pain, unspecified; G89.29 Other chronic pain; M54.16 Radiculopathy, lumbar region; M48.061 Spinal stenosis, lumbar region without neurogenic claudication; G62.9 Polyneuropathy, unspecified; E66.01 Morbid (severe) obesity due to excess calories; Z99.89 Dependence on other enabling machines and devices; Z79.891 Long term (current) use of opiate analgesic; Z68.43 Body mass index [BMI] 50.0-59.9, adult | CPT/HCPCS: 96127; 99212 ==

== ENCOUNTER 2025-09-08 13:17 | Outpatient (AMB) | payer MEDICARE, SELFPAY ==
--- NOTE | 2025-09-08 13:28 | A.SPINEOV_ITS ---
Intake Visit Reasons: 6wk follow up Intake Note: Ms. Magaña is here today for a 6 week F/u. Pastoral Worker Required: No Allergies Utwdyod-ORS-OsU Reductase Inhibitor (EXRRCYO-RNO-VAQ REDUCTASE INHIBITOR) Allergy (Unknown, Verified 09/08/25 13:32) LEG+MUSCLE CRAMPS ENVIROMENTAL Allergy (Intermediate, Uncoded 04/24/25 12:08) SNEEZING, WATERY EYES Assessment & Plan Assessment & Plan (1) Chronic right-sided lumbar radiculopathy: Code(s): M54.16 - Radiculopathy, lumbar region Category: Medical Plan Mrs Magaña is here in follow-up. Her leg pain is continuing to be very manageable with just taking a tramadol at night and gabapentin twice a day. As outlined in my previous note, she does have enough stenosis to justify surgery, but her pain really is not all that bad. She is no longer using the walker. Her strength is normal on exam. If her symptoms return, we can obviously offer her decompression, however she does have some pulmonary issues so we would need to get anesthesia to agree that it is safe. For now just using the medications is an excellent option. Total amount of time spent in this visit was 20 minutes in discussion of symptoms, lumbar MRI imaging results and subsequent plan of care Jayden Vaughn MD,PhD [facility] Coding Level of Care Code Est Pt Level 3 (02112) Diagnoses Chronic right-sided lumbar radiculopathy M54.16
== END 2025-09-08 13:56 | disposition home or self-care (01) ==
LOC: HO.HNS 13:18
PROVIDERS: PCP Physician Assistant Medical; Visit Provider Physician Assistant
DX: M54.16 Radiculopathy, lumbar region (principal)
CPT/HCPCS: 99213

== ENCOUNTER → 2025-09-08 13:17 | Outpatient (BNVA) | payer MEDICARE, SELFPAY | PROVIDERS: PCP Physician Assistant Medical; Visit Provider Physician Assistant | DX: M54.16 Radiculopathy, lumbar region (principal) | CPT/HCPCS: 99212 ==